=== PATIENT | male | born 1935 ===

== ENCOUNTER → 2024-02-23 | Outpatient (CLI) | payer MEDICARE ==
[2024-02-23 19:10] LABS: BASOPHILS ABSOLUTE AUTO 0.04 K/mm3 (0.00-0.23); BASOPHILS PERCENT AUTO 1 % (0-2); EOSINOPHILS ABSOLUTE AUTO 0.37 K/mm3 (0.00-0.68); EOSINOPHILS PERCENT AUTO 8 % (0-6); Hematocrit 39.5 % (37.0-53.0); Hemoglobin 12.8 g/dL (13.5-17.5); IMMATURE GRAN ABSOLUTE AUTO 0.01 K/mm3 (0.00-0.10); IMMATURE GRAN PERCENT AUTO 0 % (0-1); LYMPHOCYTES PERCENT AUTO 27 % (21-46); MONOCYTES PERCENT AUTO 9 % (4-13); Mean Corpuscular HGB 30.2 pg (26.0-34.0); Mean Corpuscular HGB Conc 32.4 g/dL (31.5-36.5); Mean Corpuscular Volume 93 fL (80-100); Mean Platelet Volume 10.9 fL (9.1-12.4); NEUTROPHILS ABSOLUTE AUTO 2.37 K/mm3 (1.96-9.15); NEUTROPHILS PERCENT AUTO 54 % (41-73); Platelet Count 166 K/mm3 (150-400); RDW Coefficient Variation 13.9 % (11.7-14.2); RDW Standard Deviation 46.9 fL (35.1-46.3); Red Blood Cell Count 4.24 M/mm3 (4.30-5.90); White Blood Cell Count 4.39 K/mm3 (4.00-11.30)
[2024-02-23 19:30] LABS: Free Thyroxine 0.86 ng/dL (0.70-1.60); Percent Saturation 29.9 % (20.0-50.0)
[2024-02-23 19:37] LABS: Calcium, Blood 8.6 mg/dL (8.5-10.1); Potassium, Blood 3.9 mmol/L (3.5-5.5); Thyroid Stimulating Hormone 3.76 uIU/mL (0.360-4.800); Triiodothyronine, Free 2.25 pg/mL (2.18-3.98)
== END | disposition home or self-care (01) ==
LOC: LAB 18:10 → LAB SHORT 18:10
PROVIDERS: Internal Medicine
DX: D64.9 Anemia, unspecified (principal); D52.9 Folate deficiency anemia, unspecified; R79.89 Other specified abnormal findings of blood chemistry; R60.0 Localized edema
CPT/HCPCS: 80048; 82607; 82728; 82746; 83540; 83550; 83880; 84439; 84443; 84481; 85025

== ENCOUNTER → 2024-03-20 | Outpatient (CLI) | payer MEDICARE ==
[2024-03-20 11:17] LABS: Albumin, Blood 3.5 g/dL (3.4-5.0); Anion Gap 4 mmol/L (3-11); Blood Urea Nitrogen 14 mg/dL (8-24); Bun/Creatinine Ratio 15.7 (12.0-20.0); CO2, Blood 30 mmol/L (21-32); Calcium, Blood 8.9 mg/dL (8.5-10.1); Chloride, Blood 114 mmol/L (98-108); Creatinine, Blood 0.89 mg/dL (0.60-1.20); Glomerular Filtration Rate 82 (60-); Glucose, Blood 154 mg/dL (70-99); Phosphorus, Blood 2.5 mg/dL (2.5-4.9); Potassium, Blood 3.4 mmol/L (3.5-5.5); Sodium, Blood 145 mmol/L (136-145)
== END | disposition home or self-care (01) ==
LOC: LAB SHORT 10:00 → LAB 10:00
PROVIDERS: Internal Medicine
DX: R60.0 Localized edema (principal)
CPT/HCPCS: 80069; 85379